=== PATIENT | female | born 1950 | race Caucasian/White ===

== ENCOUNTER 2016-08-01 21:00 | Emergency (ER) | payer MEDICARE, OTHER ==
[~2016-08-01] VITALS: Ht 157.5 cm; Wt 69.0 kg
[~2016-08-01 21:00] MED LIST: ACET-141 PO; ASPI-535 PO; ASPI81TA3 PO; FAMO20TA18 PO; MAGN200T PO; RANI150T9 PO; SERT50TA6 PO
[2016-08-01 21:07] VITALS: Ht 157.5 cm; Wt 69.0 kg
[2016-08-01] MEDS ORDERED: ASPIRIN 325 MG TAB PO STA (22:11)
[2016-08-01] MEDS ORDERED: NITROGLYCERIN (SL) 0.4 MG TAB SL ONE (22:30)
[2016-08-01 22:53] LABS: ADD SCAN DIFF NO
[2016-08-01 22:54] LABS: BASOPHILS % 0.4 % (0.0-2.0); EOSINOPHILS # 0.2 10^3/ul (0.0-0.5); EOSINOPHILS % 4.1 % (0.0-7.0); HEMATOCRIT 43.3 % (37.0-47.0); HEMOGLOBIN 13.5 g/dl (12.0-16.0); LYMPHOCYTES # 3.1 10^3/ul (0.8-2.9); MEAN CORPUSCULAR HEMOGLOBIN 29.2 pg (29.0-33.0); MEAN CORPUSCULAR HGB CONC 31.2 g/dl (32.0-37.0); MEAN CORPUSCULAR VOLUME 93.7 fl (82.0-101.0); MEAN PLATELET VOLUME 10.6 fl (7.4-10.4); MONOCYTE # 0.3 10^3/ul (0.3-0.9); NEUTROPHIL # 1.8 10^3/ul (1.6-7.5); NEUTROPHILS % 33.3 % (39.0-77.0); PLATELET COUNT 306 10^3/UL (140-415); RED BLOOD COUNT 4.62 10^6/ul (4.20-5.40); RED CELL DISTRIBUTION WIDTH 12.7 % (11.5-14.5); WHITE BLOOD COUNT 5.4 10^3/ul (4.8-10.8)
[2016-08-01 23:02] LABS: CHLORIDE 103 mmol/L (97-110); POTASSIUM 3.7 mmol/L (3.5-5.1); SODIUM 142 mmol/L (135-144)
[2016-08-01 23:04] LABS: INR 0.91; PARTIAL THROMBOPLASTIN TIME 23.9 Sec (25.0-35.0); PROTIME 12.3 Sec (12.2-14.2)
[2016-08-01 23:05] LABS: ANION GAP 18 (8-16); CARBON DIOXIDE 25 mmol/L (21-31)
[2016-08-01 23:06] LABS: BLOOD UREA NITROGEN 15 mg/dl (7-20); GLUCOSE 92 mg/dl (70-220)
[2016-08-01 23:15] LABS: B-TYPE NATRIURETIC PEPTIDE 56 PG/ML (0-125)
[2016-08-01 23:22] LABS: TROPONIN-I < 0.012 ng/ml (0.00-0.12)
--- NOTE | 2016-08-01 23:54 | RADRPT ---
PROCEDURE: XR, Chest. CLINICAL INDICATION: Chest pain. TECHNIQUE: AP chest COMPARISON: Chest, 11/03/2015. FINDINGS: There is no acute infiltrate in the lungs. No pleural effusion. The heart is not enlarged. IMPRESSION: 1. Unremarkable chest x-ray. RPTAT: GG .Saúl Haddad MD, MD Date Time Electronically viewed and signed by .Saúl Haddad MD, on 08/01/2016 23:54 .Y/
--- NOTE | 2016-08-02 03:27 | ERD ---
ER Documentation Chief Complaint Date/Time DATE: 08/02/16 TIME: 03:18 Chief Complaint chest pain/sob x 30 minutes HPI This 65-year-old female presents emergency room for right-sided chest pain that began 30 minutes prior to her arrival to the ER which is approximately one hour ago. She believes she had some shortness of breath with the chest pain. It has subsided somewhat since her arrival. Is described as a sharp pain that did not radiate. She had no nausea vomiting or fevers. She has had no cough recently. ROS All systems reviewed and are negative except as per history of present illness. Medications Home Meds Active Scripts Aspirin Ec (Aspir 81) 81 Mg Tablet.dr, 81 MG PO DAILY, #30 TAB Prov:JUAN MANUEL LANGSTON DO 11/03/15 Ranitidine Hcl* (Zantac*) 150 Mg Tablet, 150 MG PO BID Y for EPIGASTRIC PAIN, # 30 TAB Prov:JUAN MANUEL LANGSTON DO 11/03/15 Aspirin (Aspirin) 81 Mg Chew, 81 MG PO DAILY, #30 Prov:NASIR GARZA 01/28/15 Reported Medications Sertraline Hcl* (Sertraline Hcl*) 50 Mg Tablet, 150 MG PO DAILY, #30 TAB 11/03/15 Acetaminophen* (Acetaminophen*) 500 MG Extra Strength Tablet, 500 MG PO Q6H Y for PAIN AND OR ELEVATED TEMP, TAB 01/27/15 Magnesium (Magnesium) 200 Mg Tablet, 400 MG PO DAILY 01/27/15 Famotidine* (Famotidine*) 20 Mg Tablet, 20 MG PO DAILY, TAB 01/27/15 Allergies Allergies: Coded Allergies: No Known Allergy (Unverified , 08/01/16) PMhx/Soc History of Surgery: Yes (Cerebral aneurysm repair 2012) Anesthesia Reaction: No Hx Neurological Disorder: Yes (Aneurysm) Hx Respiratory Disorders: Yes (ASTHMA) Hx Cardiac Disorders: Yes (CAD, GA, HTN, HYPERCHOLESTEREMIA) Hx Psychiatric Problems: Yes (Chronic depression) Hx Miscellaneous Medical Probl: Yes (Osteoperosis, Firiomyalgia, ARTHRITIS) Hx Alcohol Use: Yes (OOC) Hx Substance Use: No Hx Tobacco Use: Yes Smoking Status: Current every day smoker Physical Exam Vitals Vital Signs Date Time Temp Pulse Resp B/P Pulse Ox O2 Delivery O2 Flow Rate FiO2 08/02/16 00:30 98.0 59 20 111/62 98 Room Air 08/01/16 22:32 Nasal Cannula 08/01/16 21:07 97.9 70 20 128/58 97 Physical Exam Const: [] Head: Atraumatic Eyes: Normal Conjunctiva ENT: Normal External Ears, Nose and Mouth. Neck: Full range of motion..~ No meningismus. Resp: Clear to auscultation bilaterally Cardio: Regular rate and rhythm, no murmurs Abd: Soft, non tender, non distended. Normal bowel sounds Skin: No petechiae or rashes Back: No midline or flank tenderness Ext: No cyanosis, or edema Neur: Awake and alert Psych: Normal Mood and Affect Result Diagram: 08/01/16223908/01/162239 Results 24 hrs Laboratory Tests Test 08/01/16 22:40 08/02/16 01:46 White Blood Count 5.410^3/ul Red Blood Count 4.6210^6/ul Hemoglobin 13.5g/dl Hematocrit 43.3% Mean Corpuscular Volume 93.7fl Mean Corpuscular Hemoglobin 29.2pg Mean Corpuscular Hemoglobin Concent 31.2g/dl Red Cell Distribution Width 12.7% Platelet Count 68067^3/UL Mean Platelet Volume 10.6fl Neutrophils % 33.3% Lymphocytes % 57.0% Monocytes % 5.0% Eosinophils % 4.1% Basophils % 0.4% Nucleated Red Blood Cells % 0.0/100WBC Neutrophils # 1.810^3/ul Lymphocytes # 3.110^3/ul Monocytes # 0.310^3/ul Eosinophils # 0.210^3/ul Basophils # 0.010^3/ul Nucleated Red Blood Cells # 0.010^3/ul Prothrombin Time 12.3Sec Prothrombin Time Ratio 1.0 INR International Normalized Ratio 0.91 Activated Partial Thromboplast Time 23.9Sec Sodium Level 142mmol/L Potassium Level 3.7mmol/L Chloride Level 103mmol/L Carbon Dioxide Level 25mmol/L Anion Gap 18 Blood Urea Nitrogen 15mg/dl Creatinine 0.90mg/dl Glucose Level 92mg/dl Calcium Level 10.0mg/dl Troponin I < 0.012ng/ml < 0.012ng/ml B-Type Natriuretic Peptide 56PG/ML Current Medications Medications (Trade) Dose Ordered Sig/Ashleigh Route PRN Reason Start Time Stop Time Status Last Admin Dose Admin Aspirin (Aspirin) 325 mg ONCE STAT PO 08/01/16 22:11 08/01/16 22:13 DC 08/01/16 22:33 Nitroglycerin (Nitroglycerin (Sl Tab) 0.4 Mg) 1 tab ONCE ONCE SL 08/01/16 22:30 08/01/16 22:31 DC 08/01/16 22:33 Procedures/MDM Atypical chest pain that is likely noncardiac. Patient had negative troponin at 4 interval which was greater than 5 hours from the onset of her chest pain. His combined with completely normal EKG making it very unlikely she is having acute cardiac event. She was given 3 and 25 million aspirin as well as nitroglycerin. Chest pain subsided completely in emergency room. Instructed the patient follow- up with primary care doctor to obtain an echocardiogram. Patient and her grandson agreed to have this done. Patient currently asymptomatic in the emergency room for most of her visit. Given him return precautions to the ER for any acute change. EKG interpretation: Normal sinus rhythm rate of 64, normal axis, no ST-T wave changes concerning for acute ischemia, normal intervals. Normal EKG vehicle monitor technician interpretation: Normal sinus rhythm without arrhythmias Chest x-ray interpretation: I see no acute process. I see no widened mediastinum , no pneumothorax, no pulmonary edema, no fractures. Departure Diagnosis: Primary Impression: Chest pain Condition: Stable Patient Instructions: Chest Pain, Uncertain Cause Additional Instructions: Llame al doctor DAYRON y harriet lottie ANNEMARIE PARA DENTRO DE 1-2 TREJO.Dgale a la secretaria que nosotros le instruimos hacer esta annemarie.Avise o llame si abreu condicin se empeora antes de la annemarie. Regresa aqui si peor o no mejor. JUAN MANUEL LANGSTON DO Aug 02, 2016 03:26
[2016-08-02 04:27] VITALS: BP 120/60; PULSE 77; RESP 20; TEMP 98
== END 2016-08-02 04:28 | disposition home or self-care (01) ==
LOC: E/R 21:00
DX: R07.9 Chest pain, unspecified (principal); J45.909 Unspecified asthma, uncomplicated; I25.10 Atherosclerotic heart disease of native coronary artery without angina pectoris; I10 Essential (primary) hypertension; F17.210 Nicotine dependence, cigarettes, uncomplicated; R06.02 Shortness of breath; Z79.82 Long term (current) use of aspirin
CPT/HCPCS: 36415; 71010; 80048; 83880; 84484; 85025; 85610; 85730; 93005

== ENCOUNTER 2018-01-02 20:37 | Emergency (ER) | END 2018-01-03 00:13 | disposition home or self-care (01) ==